=== PATIENT | female | born 1940 | race Two or more races ===

== ENCOUNTER 2016-10-14 00:47 | Inpatient (IN) | payer OTHER, MEDICAID ==
[~2016-10-14] VITALS: Ht 154.9 cm; Wt 72.6 kg
--- NOTE | 2016-10-14 02:15 | NUR ---
GPS RN NOTES: PATIENT'S DAUGHTER CALLED THE UNIT, EFRAIN MART[facility] ([phone]). SHE CONFIRMED THAT SHE IS THE PERSON TO NOTIFY FOR THE PATIENT. SHE RELAYED THAT HER MOTHER HAS MEDICAL PROBLEMS:LOW SODIUM, NON ALCOHOLIC CIRRHOSIS. SHE ALSO ADDED THAT THE PATIENT STOPPED TAKING HER PSYCHOTROPIC MEDICATION ABOUT TWO WEEKS AGO AND THAT SHE WAS TAKING ALTERNATIVE MEDICATIONS AND THAT'S WHEN THE DEPRESSION AND ANXIETY STARTED TO BE OBSERVED. DAUGHTER CLAIMS THAT HER MOTHER CALLS HER OVER THE PHONE ABOUT 20X IN A DAY STATING THAT SHE IS DEPRESSED, SAD AND IS FEARFUL. SHE HAS BOUTS OF PANIC ATTACKS, WHERE PATIENT JUST CRIES FOR NO REASON, TAKES HER BLOOD PRESSURE ABOUT 10X IN A DAY. DAUGHTER EXPRESSED THAT SHE IS CONCERN FOR HER MOM AND THAT SHE WANTS HER TO BE ON THE RIGHT MEDICATION THAT DOESN'T INTERFERE WITH HER MEDICAL PROBLEMS. DAUGHTER IS ALSO REMINDED REGARDING VISITING TIMES AND UNIT POLICIES. WILL ENDORSE THE PATIENT TO DAY SHIFT NURSE FOR CONTINUITY OF CARE.
[2016-10-14] MEDS ORDERED: TEMAZEPAM 7.5 MG CAPSULE PO PRN (02:30)
[2016-10-14] MEDS ORDERED: ACETAMINOPHEN 325 MG TABLET PO PRN (02:30)
[2016-10-14] MEDS ORDERED: MAG HYDROX/AL HYDROX/SIMETH 30 ML UDC PO PRN (02:30)
[2016-10-14] MEDS ORDERED: LORAZEPAM 0.5 MG TABLET PO PRN (02:30)
--- NOTE | 2016-10-14 03:09 | NUR ---
GPS RN ADMITTED NOTES ADMITTED THIS 76Y/O FEMALE CAME FROM [facility] ,PT INITIALLY HOME , PT. CAME TO THE UNIT VIA [facility] ACCOMPANIED EMT STAFF PT. IS ON VOLUNTARY STATUS ,UPON FACE TO FACE ASSESSMENT, PT. A/O X 3 , AMBULATORY DEPREESIVE COOPERATIVE , MENTAL HX OF DEPRESSION ,ANXIETY, PANIC ATTACK, .MEDICAL HX OF HTN ,SKIN/ BODY ASSESSMENT DONE, SKIN IS INTACT AND BOTH UPPER EXTRMITES , FACE CHEST NECK BACK RASHES AND DRYNESS NOTED , PICTURE TAKEN AND PLACED IN THE CHART,DENIES ANY PAIN DISCOMFORT AT THIS TIME , MRSA SCREENING DONE ,BOTH MD AWARE OF NEW ADMISSION NEW ORDERS RECEIVED AND CARRIED OUT, REORIENT TO UNIT POLICES AND CONTRABAND CHECKS , WILL CONTINUE TO MONITOR FOR SAFETY AND BEHAVIOR .
[2016-10-14] MEDS ORDERED: QUET25TA PO (03:42)
[2016-10-14] MEDS ORDERED: LOSA50TA21 PO (03:42)
[2016-10-14] MEDS ORDERED: AMLO10TA2 PO (03:42)
[2016-10-14] MEDS ORDERED: TRAM50TA2 PO (03:42)
[2016-10-14] MEDS ORDERED: CLON0.1T PO (03:42)
[2016-10-14] MEDS ORDERED: PARO10TA26 PO (03:42)
[2016-10-14 04:22] VITALS: BP 140/75
--- NOTE | 2016-10-14 05:00 | NUR ---
GPS RN: SPOKE WITH DR. WILLIAN OVALLE AND INFORMED REGARDING PATIENT'S ADMISSION. AND FOR MED RECONCILIATION.
--- NOTE | 2016-10-14 06:49 | NUR ---
GPS RN NOTES: SPOKE WITH DR. ANTHONY AND INFORMED REGARDING PATIENT'S ADMISSION.
[2016-10-14 07:12] LABS: ALANINE AMINOTRANSFERASE 26 U/L (12-78); ALBUMIN 3.9 g/dL (3.4-5.0); ALKALINE PHOSPHATASE 72 U/L (46-116); ASPARTATE AMINOTRANSFERASE 17 U/L (15-37); BILIRUBIN,TOTAL 0.6 mg/dL (0.2-1.0); CALCIUM, SERUM 8.6 mg/dL (8.5-10.1); CARBON DIOXIDE 31 mmol/L (21-32); CHLORIDE 103 mmol/L (98-107); CREATININE 0.5 mg/dL (0.6-1.3); GLUCOSE 91 mg/dL (74-106); POTASSIUM 3.9 mmol/L (3.5-5.1); SODIUM SERUM 136 mmol/L (136-145); TOTAL PROTEIN, SERUM 7.1 g/dL (6.4-8.2); UREA NITROGEN, BLOOD 4 mg/dL (7-18)
[2016-10-14 08:00] VITALS: BP 151/76
[2016-10-14 09:00] VITALS: BP 173/88
[2016-10-14] MEDS: ACETAMINOPHEN 325 MG TABLET PO PRN (09:45)
[2016-10-14 10:30] VITALS: BP 165/75
[2016-10-14] MEDS: CLONIDINE HCL 0.1 MG TABLET PO SCH ×3 (10:30→12:49)
[2016-10-14] MEDS ORDERED: TRAMADOL HCL 50 MG TABLET PO PRN (10:30)
[2016-10-14] MEDS: AMLODIPINE BESYLATE 10 MG TABLET PO SCH (10:50)
[2016-10-14] MEDS: LOSARTAN POTASSIUM 50 MG TABLET PO SCH ×2 (10:50→18:38)
--- NOTE | 2016-10-14 14:59 | NUR ---
UR update: AMPARO faxed facesheet, med list, and nursing note to NICOLAS Sellers from [facility] [phone] fax [phone]. Pt. is voluntary and there was no hold or md notes now; hence, AMPARO will follow up with Verito again tomorrow and will fax more information. Tracking # [id number]
--- NOTE | 2016-10-14 15:04 | NUR ---
Initial discharge plan: Pt. lives alone at [address] [place] [address]. No phone number provided. Pt. wants to return home when discharged. No contact information has been provided at this time. AMPARO will follow up again with the patient to see if she remembers the numbers for her children. AMPARO will follow up with MD and will help form safe and proper discharge. Addendum: 10/15/16 at 1231 by STONEY CHRISTENSEN Pt. stated she has a caregiver that comes daily for a few hours a day. Pt. states she feels lonely but wants to return home and declines placement. AMPARO will follow up with DaughterCorinna [phone] to arrange for discharge when pt. is ready. AMPARO will help form a safe and proper discharge.
[2016-10-14 16:00] VITALS: BP 133/68
[2016-10-14] MEDS ORDERED: hydrOXYzine PAMOATE 25 MG CAPSULE PO ONE (17:00)
[2016-10-14] MEDS ORDERED: hydrOXYzine PAMOATE 25 MG CAPSULE PO PRN (18:30)
--- NOTE | 2016-10-14 19:30 | NUR ---
GPS RN NOTE, RECEIVED PATIENT AWAKE AND IN BED, NO S/S OR COMPLAINTS OF PAIN AT THIS TIME. PATIENT IS DISPLAYING NO S/S OF APPARENT DISTRESS AT THIS TIME. PATIENT BREATHING IS UNLABORED WITH EQUAL RISE AND FALL OF THE CHEST. PATIENT IS NAMIBIAN SPEAKING BUT KNOWS SOME CROATIAN. PATIENT IS ALERT AND ORIENTED X 2 ON ROOM AIR WITH A SPO2 99%. PATIENT COMPLAINT WITH MEDICATION, ANXIOUS, COOPERATIVE, CALM, AND NEEDS REORIENTATION. PATIENT DENIES SUICIDE AND HOMICIDAL IDEATIONS AT THIS TIME. PATIENT ASSISTED WITH TURNING AND REPOSITIONING Q2HR AND PRN FOR COMFORT AND CIRCULATION. PATIENT HAS NO NEEDS AT THIS TIME. PATIENT EDUCATED ON THE USE OF THE CALL FRITZ. PATIENT BED SIDE RAILS UP X2 FOR SAFETY, BED IS LOCKED AND LOW WILL CONTINUE TO MONITOR AND MAINTAIN SAFETY.
[2016-10-14 20:16] VITALS: BP 117/59
--- NOTE | 2016-10-15 06:13 | NUR ---
GPS RN NOTE, PATIENT HAS A COMPLAINT OF FEELING ANXIOUS AND WOULD MEDICATION TO HELP CALM HER DOWN. PATIENT VITAL SIGNS ARE STABLE. GAVE VISTARIL 25MG PO Q4HR PRN ORDERED. WILL REASSESS FOR ANXIETY AND I WILL CONTINUE TO MONITOR THIS PATIENT.
[2016-10-15 07:06] LABS: BASOPHILS % (AUTO) 0.6 % (0.0-2.0); EOSINOPHILS # (AUTO) 0.1 /CMM (0.0-0.7); EOSINOPHILS % (AUTO) 1.6 % (0.0-6.0); HEMATOCRIT 38 % (33-45); HEMOGLOBIN 13.4 g/dL (11.5-14.8); LYMPHOCYTES # (AUTO) 1.2 /CMM (0.8-4.8); LYMPHOCYTES % (AUTO) 29.7 % (20.0-44.0); MEAN CORPUSCULAR HEMOGLOBIN 30 PG (26.0-33.0); MEAN CORPUSCULAR HGB CONC 35 g/dl (31.0-36.0); MEAN CORPUSCULAR VOLUME 86 fL (82-100); MONOCYTES # (AUTO) 0.3 /CMM (0.1-1.30); NEUTROPHILS # (AUTO) 2.5 /CMM (1.8-8.9); NEUTROPHILS % (AUTO) 60.1 % (43.0-81.0); PLATELET COUNT (AUTO) 108 /CMM (150-450); RDW COEFFICIENT OF VARIATION 12.7 (11.5-15.0); RED BLOOD CELL COUNT(AUTO) 4.48 MIL/uL (4.0-5.2); WHITE BLOOD COUNT (AUTO) 4.2 K/uL (4.3-11.0)
[2016-10-15 07:52] LABS: CALCIUM, SERUM 8.8 mg/dL (8.5-10.1); CREATININE 0.6 mg/dL (0.6-1.3); GLUCOSE 98 mg/dL (74-106); MAGNESIUM 2.1 mg/dL (1.8-2.4); PHOSPHORUS 4.1 mg/dL (2.5-4.9); UREA NITROGEN, BLOOD 10 mg/dL (7-18)
[2016-10-15 07:56] LABS: CARBON DIOXIDE 23 mmol/L (21-32); CHLORIDE 99 mmol/L (98-107); POTASSIUM 4.2 mmol/L (3.5-5.1); SODIUM SERUM 133 mmol/L (136-145)
[2016-10-15 08:00] VITALS: BP 157/88
[2016-10-15] MEDS: CLONIDINE HCL 0.1 MG TABLET PO SCH (08:16)
[2016-10-15] MEDS: LOSARTAN POTASSIUM 50 MG TABLET PO SCH ×3 (08:16→19:00)
[2016-10-15] MEDS: AMLODIPINE BESYLATE 10 MG TABLET PO SCH (08:17)
[2016-10-15] MEDS: QUETIAPINE FUMARATE 25 MG TABLET PO SCH ×3 (11:43→21:46)
--- NOTE | 2016-10-15 11:56 | NUR ---
UR update: AMPARO faxed updated clinicals to NICOLAS Sellers from [facility] [phone] fax [phone]. Tracking # [id number]
[2016-10-15] MEDS: GABAPENTIN 100 MG CAPSULE PO SCH ×2 (12:13→16:55)
[2016-10-15] MEDS: ACETAMINOPHEN 325 MG TABLET PO PRN (14:17)
--- NOTE | 2016-10-15 14:17 | NUR ---
ADMINISTERED TYLENOL 650 MG PO PRN FOR HEADACHE, PER PATIENT REQUEST, CONTINUED MONITORING.
[2016-10-15 16:00] VITALS: BP 103/60
[2016-10-15 17:47] LABS: APPEARANCE,URINE CLEAR (CLEAR); BILIRUBIN,URINE NEGATIVE (NEGATIVE); BLOOD, URINE 1+ Ery/uL (NEGATIVE); COLOR,URINE YELLOW (YELLOW); KETONES,URINE NEGATIVE (NEGATIVE); LEUKOCYTE ESTERASE ,URINE 3+ (NEGATIVE); NITRITE, URINE NEGATIVE (NEGATIVE); PROTEIN,URINE NEGATIVE (NEGATIVE); UGLUCOSE NEGATIVE (NEGATIVE); UROBILINOGEN,URINE 0.2 EU/dL (0.2)
[2016-10-15 18:26] LABS: BACTERIA,URINE Rare /HPF (None Seen); RBC,URINE 0-2 /HPF (0-2); SQUAMOUS EPITHELIAL CELL,UR Few /HPF (None Seen); WBC,URINE 21-50 /HPF (0-3)
[2016-10-15] MEDS: MAGNESIUM HYDROXIDE 30 ML UDC PO PRN (19:01)
--- NOTE | 2016-10-15 19:01 | NUR ---
administered milk of magnesia 30 mg/ml po prn for constipation , continued monitoring, endorsed oncoming nurse for continuation of care.
[2016-10-15 20:40] VITALS: BP 142/68
[2016-10-15] MEDS: LEVOFLOXACIN (500MG) 500 MG TABLET PO SCH (21:46)
[2016-10-16] MEDS: ZOLPIDEM TARTRATE 5 MG TABLET PO PRN (00:55)
--- NOTE | 2016-10-16 00:55 | NUR ---
GPS/RN NOTE: C/O INSOMNIA, AMBIEN 5 MG TAB PO GIVEN.
[2016-10-16 08:00] VITALS: BP 129/79
[2016-10-16] MEDS: AMLODIPINE BESYLATE 10 MG TABLET PO SCH (08:46)
[2016-10-16] MEDS: GABAPENTIN 100 MG CAPSULE PO SCH ×3 (08:46→18:35)
[2016-10-16] MEDS: LOSARTAN POTASSIUM 50 MG TABLET PO SCH ×2 (08:46→17:32)
[2016-10-16] MEDS: SERTRALINE HCL 25 MG TABLET PO SCH (08:47)
[2016-10-16] MEDS: QUETIAPINE FUMARATE 25 MG TABLET PO SCH ×3 (08:47→21:14)
[2016-10-16] MEDS: CLONIDINE HCL 0.1 MG TABLET PO SCH (08:48)
--- NOTE | 2016-10-16 14:00 | NUR ---
UR update: AMPARO faxed updated clinicals to NICOLAS Sellers from [facility] [phone] fax [phone]. Tracking # [id number]
[2016-10-16 16:00] VITALS: BP 131/71
[2016-10-16 19:52] VITALS: BP 122/72
[2016-10-16 19:59] VITALS: BP 122/72
[2016-10-16] MEDS: LEVOFLOXACIN (500MG) 500 MG TABLET PO SCH (21:14)
[2016-10-17 08:00] VITALS: BP 115/64
[2016-10-17 08:50] VITALS: BP 121/73
[2016-10-17] MEDS: GABAPENTIN 100 MG CAPSULE PO SCH ×4 (08:52→21:26)
[2016-10-17] MEDS: SERTRALINE HCL 25 MG TABLET PO SCH (08:53)
[2016-10-17] MEDS: LOSARTAN POTASSIUM 50 MG TABLET PO SCH ×2 (08:54→16:28)
[2016-10-17] MEDS: AMLODIPINE BESYLATE 10 MG TABLET PO SCH (08:54)
[2016-10-17] MEDS: QUETIAPINE FUMARATE 25 MG TABLET PO SCH ×3 (08:54→21:24)
[2016-10-17] MEDS: CLONIDINE HCL 0.1 MG TABLET PO SCH (09:00)
[2016-10-17 10:35] VITALS: BP 134/74
[2016-10-17 13:41] LABS: CALCIUM, SERUM 8.6 mg/dL (8.5-10.1); CARBON DIOXIDE 26 mmol/L (21-32); CHLORIDE 99 mmol/L (98-107); CREATININE 0.6 mg/dL (0.6-1.3); GLUCOSE 102 mg/dL (74-106); POTASSIUM 3.9 mmol/L (3.5-5.1); SODIUM SERUM 134 mmol/L (136-145); UREA NITROGEN, BLOOD 12 mg/dL (7-18)
--- NOTE | 2016-10-17 14:16 | NUR ---
AMPARO faxed a referral to [facility] [phone] fax [phone]
--- NOTE | 2016-10-17 15:20 | NUR ---
JOE RIVERA MADE OF AWARE OF THE RESULT OF THE SODIUM AND SAID TO NOTIFY THE AGRICULTURAL SCIENTIST. DR. MCCALLUM MADE AWARE OF THE SODIUM.
[2016-10-17 16:00] VITALS: BP 148/75
[2016-10-17 20:00] VITALS: BP 155/71
[2016-10-17] MEDS: MAGNESIUM HYDROXIDE 30 ML UDC PO PRN (20:09)
[2016-10-17] MEDS: LEVOFLOXACIN (500MG) 500 MG TABLET PO SCH (21:24)
[2016-10-18 08:00] VITALS: BP 110/63
[2016-10-18] MEDS: CLONIDINE HCL 0.1 MG TABLET PO SCH (09:00)
[2016-10-18] MEDS: GABAPENTIN 100 MG CAPSULE PO SCH ×4 (09:09→20:45)
[2016-10-18] MEDS: SERTRALINE HCL 25 MG TABLET PO SCH (09:09)
[2016-10-18] MEDS: LOSARTAN POTASSIUM 50 MG TABLET PO SCH ×2 (09:10→16:53)
[2016-10-18] MEDS: AMLODIPINE BESYLATE 10 MG TABLET PO SCH (09:10)
[2016-10-18] MEDS: QUETIAPINE FUMARATE 25 MG TABLET PO SCH ×3 (09:10→22:35)
--- NOTE | 2016-10-18 11:09 | NUR ---
Left a message for Eugenia from [facility] Hospitalization program ([phone]) to follow up on status of referral and to inform her that patient's discharged is scheduled for Friday. Left contact information. AMPARO will follow up.
--- NOTE | 2016-10-18 13:45 | NUR ---
UR Update: AMPARO faxed updated clinicals to NICOLAS Sellers from [facility] [phone] fax [phone]. Tracking # [id number]
--- NOTE | 2016-10-18 14:59 | NUR ---
Sw spoke to ankita Weinstein's dtr ([phone]) to inform her of patient's discharge on Friday. Dtr is able to pick her up at 4pm. She did express concern about the medication making her feel nauseous and groggy and wanted to make sure that she was not discharged home like that, as the patient is not able to walk and has been staying in bed. Charge nurse was informed and she will notify Dr. Carroll.
--- NOTE | 2016-10-18 15:31 | NUR ---
Dana spoke with Eugenia from [facility] program ([phone]) to follow up on status of referral. Informed her that patient was being discharged Friday and she stated patient will be able to attend their program starting on Friday at 8:45AM at their location at [address] [place] [address]. DANA provided contact number for the patient's daughter Corinna.
[2016-10-18 16:00] VITALS: BP 144/89
--- NOTE | 2016-10-18 16:03 | NUR ---
Another SW received a call back from [facility] ([phone]) and was informed that their PHP is not contracted with the patient's insurance. Assigned SW will inform insurance. Assigned SW will follow up
[2016-10-18 20:00] VITALS: BP 102/55
[2016-10-18] MEDS: LEVOFLOXACIN (500MG) 500 MG TABLET PO SCH (20:45)
[2016-10-18] MEDS: MAGNESIUM HYDROXIDE 30 ML UDC PO PRN (21:38)
[2016-10-19 08:27] VITALS: BP 129/66
[2016-10-19] MEDS: GABAPENTIN 100 MG CAPSULE PO SCH ×4 (08:53→20:32)
[2016-10-19] MEDS: LOSARTAN POTASSIUM 50 MG TABLET PO SCH ×2 (08:53→17:32)
[2016-10-19] MEDS: SERTRALINE HCL 25 MG TABLET PO SCH (08:53)
[2016-10-19] MEDS: AMLODIPINE BESYLATE 10 MG TABLET PO SCH (08:53)
[2016-10-19] MEDS: QUETIAPINE FUMARATE 25 MG TABLET PO SCH ×2 (08:53→21:25)
[2016-10-19 16:00] VITALS: BP 126/59
--- NOTE | 2016-10-19 19:40 | NUR ---
GPS RN NOTES RECEIVED WALKING IN THE HALLWAY,ABLE TO VERBALIZED NEEDS,A/O X3,SPEAK UKRAINIAN
[2016-10-19 20:00] VITALS: BP 145/82
[2016-10-19] MEDS: LEVOFLOXACIN (500MG) 500 MG TABLET PO SCH (20:25)
[2016-10-19] MEDS: MAGNESIUM HYDROXIDE 30 ML UDC PO PRN (20:32)
--- NOTE | 2016-10-19 20:32 | NUR ---
GPS RN NOTES C/O CONSTIPATION,MEDICATED WITH MOM 30ML PO ORDERED PRN FOR CONSTIPATION
[2016-10-19] MEDS: ZOLPIDEM TARTRATE 5 MG TABLET PO PRN (21:26)
--- NOTE | 2016-10-19 21:26 | NUR ---
GPS RN NOTES C/O INSOMNIA,AMBIEN 5MG PO GIVEN PE PATIENT REQUEST.
[2016-10-20 08:00] VITALS: BP 143/72
[2016-10-20] MEDS: GABAPENTIN 100 MG CAPSULE PO SCH ×4 (09:05→21:29)
[2016-10-20] MEDS: SERTRALINE HCL 25 MG TABLET PO SCH (09:06)
[2016-10-20] MEDS: AMLODIPINE BESYLATE 10 MG TABLET PO SCH (09:06)
[2016-10-20] MEDS: LOSARTAN POTASSIUM 50 MG TABLET PO SCH ×2 (09:06→17:06)
[2016-10-20 16:00] VITALS: BP 140/78
[2016-10-20] MEDS: CLONIDINE HCL 0.1 MG TABLET PO PRN (18:40)
--- NOTE | 2016-10-20 18:41 | NUR ---
patient was complaining of headache, administered Clonidine 0.1 mg po prn for elevated BP parameter of BP -162/81, p-91, o2 - 100 room air, continued monitoring. endorsed oncoming nurse for continuation of care.
[2016-10-20 20:01] VITALS: BP 140/61
[2016-10-20] MEDS: QUETIAPINE FUMARATE 25 MG TABLET PO SCH (21:29)
--- NOTE | 2016-10-21 01:18 | NUR ---
Pt has been preoccupied with her bowel movement & blood pressure. She is anxious but cooperative.
[2016-10-21 08:00] VITALS: BP 145/67
[2016-10-21] MEDS: GABAPENTIN 100 MG CAPSULE PO SCH ×2 (09:00→11:55)
[2016-10-21] MEDS: LOSARTAN POTASSIUM 50 MG TABLET PO SCH (09:00)
[2016-10-21] MEDS: SERTRALINE HCL 25 MG TABLET PO SCH (09:01)
[2016-10-21] MEDS: AMLODIPINE BESYLATE 10 MG TABLET PO SCH (09:01)
[2016-10-21] MEDS: ACETAMINOPHEN 325 MG TABLET PO PRN (10:34)
--- NOTE | 2016-10-21 10:34 | NUR ---
administered tylenol 650 mg po prn per patient request for headache, continued monitoring.
--- NOTE | 2016-10-21 11:26 | NUR ---
Discharge note: Pt. will discharge back home [address] [place] [address]. Daughter, Corinna [phone] was notified and will vegetable picker the patient around 3PM. Pt. will follow up with her primary psychiatrist, Dr. Carly Xavier [address] [facility] [address] [place] [address] . Continuing care form has been signed and discharge instructions will be provided to the family. Addendum: 10/21/16 at 1654 by STONEY CHRISTENSEN AMPARO left a voicemail for [place] [facility] ([phone]) [address] [place], [place]. to follow up with the patient and informed them that insurance agreed to pay as Dr. Mancera is an attending psychiatrist there is they will approve the program for the patient. Dr Carroll also confirmed that [place] [facility]. AMPARO provide information to pt's daughter, Corinna to follow up
[2016-10-21 11:49] VITALS: BP 161/88
[2016-10-21] MEDS: CLONIDINE HCL 0.1 MG TABLET PO PRN (11:49)
--- NOTE | 2016-10-21 11:49 | NUR ---
administered Clonidine 0.1 mg po prn for bp -161/88, p-77, patient c/o headache, dizziness, continued monitoring for safety.
--- NOTE | 2016-10-21 12:30 | NUR ---
PATIENT IN HE DINING ROOM SITTING IN THE FLORIDALMA CHAIR, NO ACUTE DISTRESS, MEDICATION WERE ADMINISTERED FOR ELEVATED BP EFFECTIVE, RECHECKED BP- 119/76, P- 70, O2-97 ROOM AIR. CONTINUED MONITORING.
--- NOTE | 2016-10-21 14:45 | NUR ---
DISCHARGE NOTES PATIENT DISCHARGE AT THIS TIME FROM GPS UNIT GOING HOME. PATIENT A/O X3, MED COMPLIANT, V/S STABLE, MEDICALLY STABLE. NO C/O PAIN. PATIENT DENIED SI/HI/AVH AT THIS TIME. MED RECONCILIATION AND DISCHARGE ORDER REVIEWED AND EXPLAINED TO PATIENT , AND DAUGHTER NAME MORIS . PATIENT AND DAUGHTER VERBALIZED UNDERSTANDING. BELONGING RETURNED BACK TO THE PATIENT. PATIENT SIGN PAPERWORK. PATIENT BOOK AUTHOR BY DAUGHTER MORIS, PHON # [phone], ADDRESS [id number], [place] [address]. ESCORTED PATIENT TO THE LOBBY FOR SAFETY.
--- NOTE | 2016-10-22 09:54 | NUR ---
UR Update: faxed discharge information to NICOLAS Sellers from [facility] [phone] fax [phone]. Tracking # [id number]
== END 2016-10-21 14:45 | disposition home or self-care (01) | DRG 880 ==
LOC: GPS 01:59
PROVIDERS: ADMIT Psychiatry & Neurology Psychiatry; ATTEND Nurse Practitioner Acute Care
DX: F41.1 Generalized anxiety disorder (principal); E87.1 Hypo-osmolality and hyponatremia; N39.0 Urinary tract infection, site not specified; F41.0 Panic disorder [episodic paroxysmal anxiety]; B96.20 Unspecified Escherichia coli [E. coli] as the cause of diseases classified elsewhere; E78.5 Hyperlipidemia, unspecified; F32.9 Major depressive disorder, single episode, unspecified; I10 Essential (primary) hypertension; Z79.899 Other long term (current) drug therapy; K74.60 Unspecified cirrhosis of liver; F29 Unspecified psychosis not due to a substance or known physiological condition; F60.7 Dependent personality disorder; F60.89 Other specific personality disorders
CPT/HCPCS: 36415; 80048-TC; 80053-TC; 81000-TC; 83735-TC; 84100-TC; 85025-TC; 87081-TC; 87086-TC; 87186-TC; Q0177